=== PATIENT | female | born 1995 | race Caucasian/White ===

== ENCOUNTER 2018-01-04 15:49 | Emergency (ER) | payer OTHER ==
[~2018-01-04] VITALS: Ht 180.3 cm; Wt 68.0 kg
[2018-01-04 16:08] VITALS: TEMP 37.1; Ht 180.3 cm; Wt 68.0 kg
[2018-01-04] MEDS ORDERED: ONDANSETRON INJ 2 MG/ML 2 ML VIAL IV STA (16:14)
[2018-01-04] MEDS ORDERED: LEVETIRACETAM 500 MG TAB PO STA (16:14)
[2018-01-04] MEDS ORDERED: SODIUM CHLORIDE 0.9% 1000ML 1,000 ML IV STA (16:14)
--- NOTE | 2018-01-04 16:17 | EMERGENCY ROOM VISIT NOTE ---
History Report prepared by Bubba: Lionel King Under the Supervision of: Dr. Cipriano Gutierres M.D. First contact with patient: 16:07 Chief Complaint: SEIZURE Stated Complaint: SEIZURE Nursing Triage Summary: Patient arrived ALS from campus. Patient was at gym where she had a witnessed seizure lasting approimately 4 minutes. Patient has no recollection of events. No notable injuries. Patient does have a seizure hx. She had her one and only seizure 09/12. Patient has been on Keppra since that event but forgot to take it this morning. History of Present Illness The patient is a 22 year old female with a history of seizures who presents to the Emergency Room via ALS with complaints of a seizure episode that occurred prior to arrival this afternoon. She does not want me to talk to her parents. The patient states that she is on Keppra, but did not take it yet today, as she takes it at different times each day. She notes that this episode occurred just before she started working out with friends at the gym. The patient's friends note that the patient exhibited seizure-like activity, and hit her head on the wall, and slowly went down to the floor. The patient currently denies any notable injuries or pain, including any headaches or abdominal pain. She also denies any recent fevers. The patient states that she has been eating fine recently. She notes that she has not talked to her seizure doctor in a few months. The patient denies any chance of , as she is on control. She adds that she drank a bit of alcohol yesterday afternoon. Source of History: patient, friend Onset: [employer] this afternoon Position: other (global) Symptom Intensity: no injury during seizure Quality: other (seizure) Timing: other (episode) Associated Symptoms: No fevers, No headache, No abdominal pain Note: Associated symptoms: Denies any pain. Review of Systems See HPI for pertinent positives & negatives. A total of 10 systems reviewed and were otherwise negative. Past Medical & Surgical Medical Problems: (1) Seizure disorder Family History No pertinent family history Social History Smoking Status: Never Smoker Alcohol Use: occasionally Housing Status: lives with roommate Occupation Status: [employer] student Current/Historical Medications Scheduled Control Pills ( Control Pills), 1 TAB PO DAILY Levetiracetam (Keppra), 1,000 MG PO DAILY Allergies Coded Allergies: No Known Allergies (Unverified , 4/8/18) Physical Exam Vital Signs Date Time Temp Pulse Resp B/P (MAP) Pulse Ox O2 Delivery O2 Flow Rate FiO2 01/04/18 17:26 93 24 143/93 100 01/04/18 16:39 98 01/04/18 16:36 93 15 163/95 100 Room Air 01/04/18 16:33 99 Room Air 01/04/18 16:11 99 Room Air 01/04/18 16:08 37.1 117 22 171/89 99 Room Air Physical Exam GENERAL: Awake, alert, well-appearing, in no acute distress HENT: Normocephalic, atraumatic. Oropharynx unremarkable. EYES: Normal conjunctiva. Sclera non-icteric. NECK: Supple. No nuchal rigidity. FROM. No JVD. RESPIRATORY: Clear to auscultation. CARDIAC: Regular rate, normal rhythm. Extremities warm and well perfused. Pulses equal. ABDOMEN: Soft, non-distended. No tenderness to palpation. No rebound or guarding. No masses. RECTAL: Deferred. MUSCULOSKELETAL: Chest examination reveals no tenderness. The back is symmetrical on inspection without obvious abnormality. There is no CVA tenderness to palpation. No joint edema. LOWER EXTREMITIES: Calves are equal size bilaterally and non-tender. No edema. No discoloration. NEURO: Normal sensorium. No sensory or motor deficits noted. No evidence of meningitis or encephalitis on exam. SKIN: No rash or jaundice noted. Medical Decision & Procedures Laboratory Results 01/04/18 15:59 Red Blood Count 5.13, Mean Corpuscular Volume 81.7, Mean Corpuscular Hemoglobin 27.7, Mean Corpuscular Hemoglobin Concent 33.9, Mean Platelet Volume 11.1, Neutrophils (%) (Auto) 61.4, Lymphocytes (%) (Auto) 32.1, Monocytes (%) (Auto) 4.9, Eosinophils (%) (Auto) 0.8, Basophils (%) (Auto) 0.6, Neutrophils # (Auto) 3.26, Lymphocytes # (Auto) 1.70, Monocytes # (Auto) 0.26, Eosinophils # (Auto) 0.04, Basophils # (Auto) 0.03 01/04/18 15:59 Test 01/04/18 15:59 01/04/18 16:28 White Blood Count 5.30 K/uL (4.8-10.8) Red Blood Count 5.13 M/uL (4.2-5.4) Hemoglobin 14.2 g/dL (12.0-16.0) Hematocrit 41.9 % (37-47) Mean Corpuscular Volume 81.7 fL (80-100) Mean Corpuscular Hemoglobin 27.7 pg (25-34) Mean Corpuscular Hemoglobin Concent 33.9 g/dl (32-36) Platelet Count 191 K/uL (130-400) Mean Platelet Volume 11.1 fL (7.4-10.4) Neutrophils (%) (Auto) 61.4 % Lymphocytes (%) (Auto) 32.1 % Monocytes (%) (Auto) 4.9 % Eosinophils (%) (Auto) 0.8 % Basophils (%) (Auto) 0.6 % Neutrophils # (Auto) 3.26 K/uL (1.4-6.5) Lymphocytes # (Auto) 1.70 K/uL (1.2-3.4) Monocytes # (Auto) 0.26 K/uL (0.11-0.59) Eosinophils # (Auto) 0.04 K/uL (0-0.5) Basophils # (Auto) 0.03 K/uL (0-0.2) RDW Standard Deviation 39.0 fL (36.4-46.3) RDW Coefficient of Variation 12.9 % (11.5-14.5) Immature Granulocyte % (Auto) 0.2 % Immature Granulocyte # (Auto) 0.01 K/uL (0.00-0.02) Prothrombin Time 10.2 SECONDS (9.0-12.0) Prothromb Time International Ratio 1.0 (0.9-1.1) Activated Partial Thromboplast Time 23.3 SECONDS (21.0-31.0) Partial Thromboplastin Ratio 0.9 Anion Gap 10.0 mmol/L (3-11) Est Creatinine Clear Calc Drug Dose 83.8 ml/min Estimated GFR () 79.6 Estimated GFR (Non- 68.7 BUN/Creatinine Ratio 14.4 (10-20) Calcium Level 8.9 mg/dl (8.5-10.1) Phosphorus Level 1.9 mg/dl (2.5-4.9) Magnesium Level 2.0 mg/dl (1.8-2.4) Thyroid Stimulating Hormone (TSH) 2.310 uIu/ml (0.300-4.500) Urine Color YELLOW Urine Appearance CLEAR (CLEAR) Urine pH 5.0 (4.5-7.5) Urine Specific [place] 1.024 (1.000-1.030) Urine Protein 2+ (NEG) Urine Glucose (UA) NEG (NEG) Urine Ketones NEG (NEG) Urine Occult Blood NEG (NEG) Urine Nitrite NEG (NEG) Urine Bilirubin NEG (NEG) Urine Urobilinogen NEG (NEG) Urine Leukocyte Esterase NEG (NEG) Urine WBC (Auto) 1-5 /hpf (0-5) Urine RBC (Auto) 0-4 /hpf (0-4) Urine Hyaline Casts (Auto) 5-10 /lpf (0-5) Urine Epithelial Cells (Auto) >30 /lpf (0-5) Urine Bacteria (Auto) 1+ (NEG) Labs reviewed by ED physician. Medications Administered Medications (Trade) Dose Ordered Sig/Crissy Route Start Time Stop Time Status Last Admin Dose Admin Levetiracetam (Keppra Tab) 1,000 mg NOW STAT PO 01/04/18 16:14 01/04/18 16:16 DC 01/04/18 16:14 1,000 MG Ondansetron HCl (Zofran Inj) 4 mg NOW STAT IV 01/04/18 16:14 01/04/18 16:16 DC 01/04/18 16:14 4 MG Sodium Chloride 1,000 ml @ 999 mls/hr Q1H1M STAT IV 01/04/18 16:14 01/04/18 17:14 DC 01/04/18 16:14 999 MLS/HR Acetaminophen (Tylenol Tab) 1,000 mg NOW STAT PO 01/04/18 17:08 01/04/18 17:09 DC 01/04/18 17:24 1,000 MG ECG Per My Interpretation Indication: other (seizure) Rate (beats per minute): 112 Rhythm: sinus tachycardia Findings: other (normal axis, no ST elevation or depression) ED Course 1609: Past medical records reviewed. The patient was evaluated in room B12B. A complete history and physical examination was performed. 1614: NSS 1000 ml @ 999 mls/hr IV, Zofran Inj 4 mg IV, Keppra Tab 1000 mg PO. 1645: The patient said that I can talk to her father. I spoke with the patient' s father, and he is already driving here. Upon reexamination the patient is resting comfortably. I discussed results and treatment plan with the patient. She verbalizes agreement and understanding. The patient is ready for discharge. Medical Decision Differential diagnosis: Etiologies such as infection, hypoglycemia, electrolyte abnormalities, cardiac sources, intracerebral event, trauma, toxicologic, neurologic, as well as others were entertained. This is a 22-year-old female who presents the emergency department after a seizure. The patient admits to drinking alcohol yesterday and also reports she did not take her seizure medication this morning. She does not have any evidence of meningitis encephalitis on examination. I offered to call this patient's parents upon arrival to the emergency department which she initially refused. The patient was given her Keppra here in the emergency department and given Tylenol. I reviewed the patient's laboratory work with the patient. I feel that she does not eat a CAT scan as she has no evidence of meningitis or encephalitis on examination and she has had seizures previously. The patient did consent at the time of discharge to me discussing everything with her father. He was in agreement with the treatment plan to have the patient follow- up with her neurologist. Patient and father are in agreement with the treatment plan. Medication Reconcilliation Current Medication List: was personally reviewed by me Blood Pressure Screening Patient's blood pressure: Elevated blood pressure Blood pressure disposition: Elevated BP felt to be situational Impression Primary Impression: Seizure Scribe Attestation The scribe's documentation has been prepared under my direction and personally reviewed by me in its entirety. I confirm that the note above accurately reflects all work, treatment, procedures, and medical decision making performed by me. Departure Information Dispostion Home / Self-Care Referrals No Doctor, Assigned (PCP) Patient Instructions ED Seizure Recurrent, My [facility] Additional Instructions Take Keppra at same time every day Refrain from alcohol Follow up with Neurologist You have been examined and treated today on an emergency basis only. This is not a substitute for, or an effort to provide, complete comprehensive medical care. It is impossible to recognize and treat all injuries or illnesses in a single emergency department visit. It is therefore important that you follow up closely with [facility]. Call as soon as possible for an appointment. Thank you for your time and consideration. I look forward to speaking with you again soon. Please don't hesitate to call us if you have any questions.
[2018-01-04 16:22] LABS: BASO % 0.6 %; BASO ABS # 0.03 K/uL (0-0.2); EOS % 0.8 %; EOS ABS # 0.04 K/uL (0-0.5); HEMATOCRIT 41.9 % (37-47); HEMOGLOBIN 14.2 g/dL (12.0-16.0); IG# 0.01 K/uL (0.00-0.02); LYMPH % 32.1 %; MEAN CELL VOLUME 81.7 fL (80-100); MEAN CORPUSCULAR HEMOGLOBIN 27.7 pg (25-34); MEAN CORPUSCULAR HGB CONC 33.9 g/dl (32-36); MEAN PLATELET VOLUME 11.1 fL (7.4-10.4); MONO % 4.9 %; MONO ABS # 0.26 K/uL (0.11-0.59); NEUT % 61.4 %; NEUT ABS # 3.26 K/uL (1.4-6.5); PLATELET COUNT 191 K/uL (130-400); RED CELL DISTRIBUTION WIDTH CV 12.9 % (11.5-14.5)
[2018-01-04 16:31] LABS: CALCIUM 8.9 mg/dl (8.5-10.1); CREATININE 1.14 mg/dl (0.60-1.20); POTASSIUM 3.6 mmol/L (3.5-5.1)
[2018-01-04 16:33] VITALS: O2SAT 99
[2018-01-04 16:33] LABS: PTT PATIENT 23.3 SECONDS (21.0-31.0)
[2018-01-04] MEDS ORDERED: BCPILLS PO (16:37)
[2018-01-04] MEDS ORDERED: LEVE500T13 PO (16:37)
[2018-01-04 16:41] LABS: PHOSPHORUS 1.9 mg/dl (2.5-4.9)
[2018-01-04] MEDS ORDERED: ACETAMINOPHEN 500 MG TAB PO STA (17:08)
[2018-01-04 17:26] VITALS: BP 143/93; PULSE 93; O2SAT 100
== END 2018-01-04 17:27 | disposition home or self-care (01) ==
LOC: C.EDB 15:52
DX: R56.9 Unspecified convulsions (principal); Z79.899 Other long term (current) drug therapy; Z79.3 Long term (current) use of hormonal contraceptives